=== PATIENT | female | born 1980 | race African-American/Black ===

== ENCOUNTER 2022-12-12 15:06 | Outpatient (REF) | payer BC, SELFPAY ==
[2022-12-12 16:19] LABS: IDNOW Serial# 08D9AD1C; Strep A Nucleic Acid Negative (Negative)
== END 2022-12-12 15:07 | disposition home or self-care (01) ==
LOC: HO.MMNH2L 15:06
PROVIDERS: Visit Provider Family Medicine
DX: Z11.2 Encounter for screening for other bacterial diseases (principal)
CPT/HCPCS: 36415; 87651